=== PATIENT | male | born 1960 | race American Indian/Alaskan Native ===

== ENCOUNTER 2018-01-08 17:45 | Emergency (ER) | payer SELFPAY ==
--- NOTE | 2018-01-08 18:24 | Emergency Department Report ---
HPI - General Chief Complaint: Abdominal Pain Time Seen by Provider: 01/08/18 18:13 - HPI HPI: Room 2 The patient is a 57-year-old male presenting with a chief complaint of left flank pain. The patient states this morning he had the sudden onset of pain in the left flank and it has been constant. Patient denies nausea/vomiting or shortness of breath. Location: [See above] Duration: Constant since this morning Quality: Pain Severity: Moderate Modifying factors: [see above] Context: [see above] Mode of transportation: [not driving] ED Past Medical Hx - Past Medical History Previous Medical History?: Yes - Surgical History Past Surgical History?: No - Family History Family history: no significant - Social History Smoking Status: Current Every Day Smoker (1/1.5 packs per day) Substance Use Type: None (denies illicit drug use), Alcohol (two 24oz beers daily) - Medications Home Medications: Home Medications Medication Instructions Recorded Confirmed Last Taken Type Ibuprofen [Motrin 800 MG tab] 800 mg PO Q8HR PRN #20 tablet 01/08/18 Unknown Rx traMADol [Ultram] 50 mg PO Q6HR PRN #10 tablet 01/08/18 Unknown Rx ED Review of Systems ROS: Stated complaint: FLANK/BACK PAIN Other details as noted in HPI Respiratory: denies: shortness of breath Gastrointestinal: abdominal pain. denies: nausea, vomiting Musculoskeletal: back pain Physical Exam - Physical Exam Vital Signs: Vital Signs 01/08/18 17:55 Pulse Rate 75 Respiratory 17 Rate Blood Pressure 143/80 O2 Sat by Pulse 97 Oximetry Physical Exam: GENERAL: The patient is well-developed well-nourished pleasant thin male sitting on stretcher not appear to be in acute distress. Odor of alcohol on breath HEENT: Normocephalic. Atraumatic. Extraocular motions are intact. Patient has moist mucous membranes. NECK: Supple. Trachea midline CHEST/LUNGS: Clear to auscultation. There is no respiratory distress noted. HEART/CARDIOVASCULAR: Regular. There is no tachycardia. There is no gallop rub or murmur. ABDOMEN: Abdomen is soft, with discomfort to palpation in the right upper quadrant, right lower quadrant and left lower quadrant. There is no rebound or guarding. Patient has normal bowel sounds. There is no abdominal distention. SKIN: There is no rash. There is no edema. There is no diaphoresis. NEURO: The patient is awake, alert, and oriented. The patient is cooperative. The patient has normal speech MUSCULOSKELETAL: There is some left CVA tenderness. There is no evidence of acute injury. ED Course Vital Signs 01/08/18 17:55 Pulse Rate 75 Respiratory 17 Rate Blood Pressure 143/80 O2 Sat by Pulse 97 Oximetry - Reevaluation(s) Reevaluation #1: 01/09/18 00:03 Patient resting comfortably. Patient informed that he will be discharged to family or when his alcohol level has decreased to <0.08 ED Medical Decision Making - Lab Data Result diagrams: 01/08/18 18:19 01/08/18 18:19 Laboratory Tests 01/08/18 01/08/18 01/08/18 18:19 18:19 18:19 WBC 4.2 L RBC 3.81 Hgb 12.5 Hct 38.1 MCV 100 H MCH 33 H MCHC 33 RDW 14.0 Plt Count 249 Lymph % (Auto) 44.4 H [place] % (Auto) 7.4 H Eos % (Auto) 8.5 H Baso % (Auto) 2.6 H Lymph # 1.9 [place] # 0.3 Eos # 0.4 Baso # 0.1 Seg Neutrophils % 37.1 L Seg Neutrophils # 1.6 L Sodium Potassium Chloride Carbon Dioxide Anion Gap BUN Creatinine Estimated GFR BUN/Creatinine Ratio Glucose Calcium Total Bilirubin AST ALT Alkaline Phosphatase Total Protein Albumin Albumin/Globulin Ratio Amylase 32 Lipase 41 Urine Color Urine Turbidity Urine pH Ur Specific [place] Urine Protein Urine Glucose (UA) Urine Ketones Urine Blood Urine Nitrite Urine Bilirubin Urine Urobilinogen Ur Leukocyte Esterase Urine WBC (Auto) Urine RBC (Auto) Urine Mucus Plasma/Serum Alcohol 0.30 H 01/08/18 01/08/18 18:19 20:34 WBC RBC Hgb Hct MCV MCH MCHC RDW Plt Count Lymph % (Auto) [place] % (Auto) Eos % (Auto) Baso % (Auto) Lymph # [place] # Eos # Baso # Seg Neutrophils % Seg Neutrophils # Sodium 141 Potassium 4.4 Chloride 102.4 Carbon Dioxide 24 Anion Gap 19 BUN 14 Creatinine 0.6 L Estimated GFR > 60 BUN/Creatinine Ratio 23 Glucose 82 Calcium 8.7 Total Bilirubin 0.30 AST 25 ALT 10 Alkaline Phosphatase 72 Total Protein 7.1 Albumin 4.4 Albumin/Globulin Ratio 1.6 Amylase Lipase Urine Color Yellow Urine Turbidity Clear Urine pH 5.0 Ur Specific [place] 1.017 Urine Protein <15 mg/dl Urine Glucose (UA) Neg Urine Ketones Neg Urine Blood Neg Urine Nitrite Neg Urine Bilirubin Neg Urine Urobilinogen < 2.0 Ur Leukocyte Esterase Neg Urine WBC (Auto) < 1.0 Urine RBC (Auto) 1.0 Urine Mucus Few Plasma/Serum Alcohol - Radiology Data Radiology results: report reviewed (CT chest, CT abdomen and pelvis), image reviewed (CT chest, CT abdomen and pelvis) [address] [address] Cat Scan Report Signed Patient: TABBY MONTENEGRO MR#: [id number] : 1960 Acct:[id number] Age/Sex: 57 / M ADM Date: 01/08/18 Loc: ED Attending Dr: Ordering Physician: HELENE CATES MD Date of Service: 01/08/18 Procedure(s): CT angio chest Accession Number(s): [id number] cc: HELENE CATES MD FINAL REPORT PROCEDURE: CT ANGIO CHEST TECHNIQUE: Computerized tomographic angiography of the chest was performed during the IV injection of iodinated nonionic contrast including image processing. The image data was postprocessed using 2-dimensional multiplanar reformatted (MPR) and 3-dimensional (MIP and/or volume rendered) techniques. HISTORY: Sudden onset left-sided pain. COMPARISON: No prior studies are available for comparison. FINDINGS: Pulmonary outflow tract, right and left main pulmonary arteries and their proximal branches: Clear, no filling defects seen to suggest pulmonary embolus. Pericardium: No evidence of pericardial effusion. Thoracic aorta: Atherosclerotic changes visualized, evidence of aneurysmal dilatation or dissection. Coronary arteries: Are partially calcified indicating atherosclerotic disease. Mediastinum and hilar regions: Nonspecific subcentimeter lymph nodes are visualized. No pathologically enlarged lymph nodes or masses are identified. Lung [place]: Clear Upper abdomen: Mild to moderate diffuse emphysematous changes are present. No infiltrates or masses are identified. Linear band of atelectasis visualize left lower lobe. Other: None IMPRESSION: Emphysematous changes are visualized. No acute abnormalities are seen. No evidence of pulmonary embolus or aortic aneurysm. Atherosclerotic changes are seen in the coronary arteries. Transcribed By: DFN Dictated By: STACAI HERNANDEZ MD Electronically Authenticated By: STACIA HERNANDEZ MD Signed Date/Time: 01/08/182151 DD/ 51 TD/TT: 01/08/182151 [facility] [address] [place] [address] Cat Scan Report Signed Patient: TABBY MONTENEGRO MR#: [id number] : 1960 Acct:[id number] Age/Sex: 57 / M ADM Date: 01/08/18 Loc: ED Attending Dr: Ordering Physician: HELENE CATES MD Date of Service: 01/08/18 Procedure(s): CT abdomen pelvis w con Accession Number(s): [id number] cc: HELENE CATES MD FINAL REPORT PROCEDURE: CT ABDOMEN PELVIS W CON TECHNIQUE: Computerized axial tomography of the abdomen and pelvis was performed after the IV injection of iodinated nonionic contrast. HISTORY: left flank pain, diffuse abdominal pain COMPARISON: No prior studies are available for comparison. FINDINGS: Lower Lung [place]: Thin linear band of atelectasis appears to be present in the left lower lobe. Lung bases otherwise are unremarkable. Upper Abdomen: The liver, the gallbladder, the adrenal glands, the pancreas and spleen are unremarkable. Kidneys, Ureters and Urinary bladder: Small focal area of cortical thinning visualized upper 3rd left kidney posteriorly consistent with a small parenchymal scar. The kidneys otherwise are unremarkable.. No renal calculi are seen. There are no renal masses visualized. No hydronephrosis. The ureters and urinary bladder are also unremarkable. Retroperitoneum: Atherosclerotic changes are seen in the abdominal aorta and iliac artery. No aneurysm is visualized. Nonspecific subcentimeter lymph nodes are seen in the retroperitoneum. No pathologically enlarged lymph nodes are identified. Bowel: Mild diverticulosis seen left side of the colon. No evidence of diverticulitis. No evidence of bowel obstruction or ascites. There is no free intraperitoneal gas. Normal-appearing appendix is seen in the right lower quadrant. Reproductive organs: There is nonspecific prostate enlargement. Other: No acute bony abnormalities are seen. IMPRESSION: Small parenchymal scar visualize left kidney as described. No hydronephrosis renal mass or calculi are seen. Mild colonic diverticulosis left side of the colon without evidence of diverticulitis. There is nonspecific diffuse prostate enlargement. Transcribed By: DFAnna Marie Dictated By: STACIA HERNANDEZ MD Electronically Authenticated By: STACIA HERNANDEZ MD Signed Date/Time: 01/08/182343 DD/ 43 TD/TT: 01/08/182343 - Differential Diagnosis renal colic, aortic dissection, PE, UTI, polynephritis, pneumothorax Critical care attestation.: If time is entered above; I have spent that time in minutes in the direct care of this critically ill patient, excluding procedure time. ED Disposition Clinical Impression: Acute left flank pain, Alcohol intoxication Disposition: TO HOME OR SELFCARE Is pt being admited?: No Does the pt Need Aspirin: No Condition: Stable Instructions: Abuse of Alcohol (ED), At-Risk Alcohol Use (ED), Flank Pain (ED) Additional Instructions: Return to the emergency department immediately should you develop worsening symptoms, fever, inability to tolerate food or liquid or any other concerns. Prescriptions: Ibuprofen [Motrin 800 MG tab] 800 mg PO Q8HR PRN #20 tablet PRN Reason: Pain traMADol [Ultram] 50 mg PO Q6HR PRN #10 tablet PRN Reason: Pain Referrals: JACOOB MIMS MD [Primary Care Provider] - 3-5 Days Time of Disposition: 00:01 (d/c to family or when ETOH <0.08)
[2018-01-08 18:32] LABS: Basophils # (Auto) 0.1 K/mm3 (0.0-0.1); Basophils % (Auto) 2.6 % (0.0-1.8); Eosinophils # (Auto) 0.4 K/mm3 (0.0-0.4); Eosinophils % (Auto) 8.5 % (0.0-4.3); Hematocrit 38.1 % (35.5-45.6); Hemoglobin 12.5 gm/dl (11.8-15.2); Lymphocytes # (Auto) 1.9 K/mm3 (1.2-5.4); Lymphocytes % (Auto) 44.4 % (13.4-35.0); Mean Corpuscular HGB Conc 33 % (32-34); Mean Corpuscular Hemoglobin 33 pg (28-32); Mean Corpuscular Volume 100 fl (84-94); Monocytes # (Auto) 0.3 K/mm3 (0.0-0.8); Monocytes % (Auto) 7.4 % (0.0-7.3); Platelet Count 249 K/mm3 (140-440); Red Blood Count 3.81 M/mm3 (3.65-5.03)
[2018-01-08 18:54] LABS: Lipase 41 units/L (13-60)
[2018-01-08 18:56] LABS: Alanine Aminotransferase 10 units/L (7-56); Albumin 4.4 g/dL (3.9-5); BUN/Creatinine Ratio 23; Blood Urea Nitrogen 14 mg/dL (9-20); Calcium 8.7 mg/dL (8.4-10.2); Hemolysis Index 5
[2018-01-08] MEDS ORDERED: VITAMIN B-1 100 MG, FOLVITE 1 MG, INFUVITE 10 ML, MAGNESIUM SULFATE 2 GM in NACL 0.9% 1... IV ONE (20:25)
[2018-01-08 20:49] LABS: Bilirubin,Urine NEG (Negative); Blood,Urine NEG (Negative); Color,Urine Yellow (Yellow); Mucus,Urine FEW /HPF; Protein,Urine <15 mg/dL mg/dL (Negative); Urobilinogen,Urine < 2.0 mg/dL (<2.0); WBC,Urine < 1.0 /HPF (0.0-6.0)
--- NOTE | 2018-01-08 21:58 | Cat Scan Report ---
FINAL REPORT PROCEDURE: CT ANGIO CHEST TECHNIQUE: Computerized tomographic angiography of the chest was performed during the IV injection of iodinated nonionic contrast including image processing. The image data was postprocessed using 2-dimensional multiplanar reformatted (MPR) and 3-dimensional (MIP and/or volume rendered) techniques. HISTORY: Sudden onset left-sided pain. COMPARISON: No prior studies are available for comparison. FINDINGS: Pulmonary outflow tract, right and left main pulmonary arteries and their proximal branches: Clear, no filling defects seen to suggest pulmonary embolus. Pericardium: No evidence of pericardial effusion. Thoracic aorta: Atherosclerotic changes visualized, evidence of aneurysmal dilatation or dissection. Coronary arteries: Are partially calcified indicating atherosclerotic disease. Mediastinum and hilar regions: Nonspecific subcentimeter lymph nodes are visualized. No pathologically enlarged lymph nodes or masses are identified. Lung [place]: Clear Upper abdomen: Mild to moderate diffuse emphysematous changes are present. No infiltrates or masses are identified. Linear band of atelectasis visualize left lower lobe. Other: None IMPRESSION: Emphysematous changes are visualized. No acute abnormalities are seen. No evidence of pulmonary embolus or aortic aneurysm. Atherosclerotic changes are seen in the coronary arteries.
--- NOTE | 2018-01-08 23:49 | Cat Scan Report ---
FINAL REPORT PROCEDURE: CT ABDOMEN PELVIS W CON TECHNIQUE: Computerized axial tomography of the abdomen and pelvis was performed after the IV injection of iodinated nonionic contrast. HISTORY: left flank pain, diffuse abdominal pain COMPARISON: No prior studies are available for comparison. FINDINGS: Lower Lung [place]: Thin linear band of atelectasis appears to be present in the left lower lobe. Lung bases otherwise are unremarkable. Upper Abdomen: The liver, the gallbladder, the adrenal glands, the pancreas and spleen are unremarkable. Kidneys, Ureters and Urinary bladder: Small focal area of cortical thinning visualized upper 3rd left kidney posteriorly consistent with a small parenchymal scar. The kidneys otherwise are unremarkable.. No renal calculi are seen. There are no renal masses visualized. No hydronephrosis. The ureters and urinary bladder are also unremarkable. Retroperitoneum: Atherosclerotic changes are seen in the abdominal aorta and iliac artery. No aneurysm is visualized. Nonspecific subcentimeter lymph nodes are seen in the retroperitoneum. No pathologically enlarged lymph nodes are identified. Bowel: Mild diverticulosis seen left side of the colon. No evidence of diverticulitis. No evidence of bowel obstruction or ascites. There is no free intraperitoneal gas. Normal-appearing appendix is seen in the right lower quadrant. Reproductive organs: There is nonspecific prostate enlargement. Other: No acute bony abnormalities are seen. IMPRESSION: Small parenchymal scar visualize left kidney as described. No hydronephrosis renal mass or calculi are seen. Mild colonic diverticulosis left side of the colon without evidence of diverticulitis. There is nonspecific diffuse prostate enlargement.
[2018-01-09 10:23] VITALS: BP 135/74
== END 2018-01-09 10:23 | disposition home or self-care (01) ==
LOC: ED 17:45
DX: R10.9 Unspecified abdominal pain (principal); F10.120 Alcohol abuse with intoxication, uncomplicated; F17.200 Nicotine dependence, unspecified, uncomplicated
CPT/HCPCS: 36415; 71275; 74177; 80053; 81001; 82150; 83690; 85025; 96365; 96366; 99285; G0480; J3411; J3475; J7030; Q9967; 80320

== ENCOUNTER 2019-01-09 15:34 | Emergency (ER) | payer OTHER ==
--- NOTE | 2019-01-09 16:05 | Emergency Department Report ---
Blank Doc - Documentation Documentation: This is a 58-year-old male that presents with chest pain and SOB. This initial assessment/diagnostic orders/clinical plan/treatment(s) is/are subject to change based on patient's health status, clinical progression and re- assessment by fellow clinical providers in the ED. Further treatment and workup at subsequent clinical providers discretion. Patient/guardians urged not to elope from the ED as their condition may be serious if not clinically assessed and managed. Initial orders include: 1- Patient sent to MAIN ED for further evaluation and treatment 2- labs 3- EKG 4- CXR
--- NOTE | 2019-01-09 16:54 | XRay Report ---
PROCEDURE: XR CHEST ROUTINE 2V TECHNIQUE: 2 view chest HISTORY: Chest Pain COMPARISONS: None FINDINGS: Heart size normal. Trachea midline. Mediastinal contour unremarkable. No pneumothorax. No sizable effusion. No acute airspace disease. No acute bony abnormality. IMPRESSION: No active pulmonary disease.. This document is electronically signed by Jose Travis MD., Jan 09 2019 04:52:30 PM ET
[2019-01-09 18:01] LABS: Basophils # (Auto) 0.1 K/mm3 (0.0-0.1); Basophils % (Auto) 1.1 % (0.0-1.8); Eosinophils # (Auto) 0.4 K/mm3 (0.0-0.4); Eosinophils % (Auto) 7.4 % (0.0-4.3); Hematocrit 41.2 % (35.5-45.6); Hemoglobin 13.9 gm/dl (11.8-15.2); Lymphocytes # (Auto) 2.1 K/mm3 (1.2-5.4); Lymphocytes % (Auto) 42.5 % (13.4-35.0); Mean Corpuscular HGB Conc 34 % (32-34); Mean Corpuscular Volume 99 fl (84-94); Monocytes # (Auto) 0.4 K/mm3 (0.0-0.8); Monocytes % (Auto) 8.1 % (0.0-7.3); Platelet Count 424 K/mm3 (140-440); Red Blood Count 4.17 M/mm3 (3.65-5.03); Red Cell Distribution Width 13.6 % (13.2-15.2)
[2019-01-09 18:12] LABS: INR 0.88 (0.87-1.13)
[2019-01-09 18:13] LABS: Partial Thromboplastin Time 26.9 Sec. (24.2-36.6)
[2019-01-09 18:24] LABS: BUN/Creatinine Ratio 18; Blood Urea Nitrogen 16 mg/dL (9-20); Calcium 9.7 mg/dL (8.4-10.2); Hemolysis Index 0
--- NOTE | 2019-01-09 23:52 | Emergency Department Report ---
ED Chest Pain HPI - General Chief Complaint: Chest Pain Stated Complaint: ACID REFLUX Time Seen by Provider: 01/09/19 15:55 Source: patient Mode of arrival: Ambulatory Limitations: No Limitations - History of Present Illness Initial Comments: Patient is 58 years old male with no significant past medical history. Patient presented to the ER complaining of substernal chest pain for the last 3 days. Patient describes his pain as tightness, comes and goes with no radiation. Patient stated that pain associated with shortness of breath. Patient denied any cough, fever or chills. MD Complaint: chest pain Severity scale (0 -10): 0 - Related Data Previous Rx's Medication Instructions Recorded Last Taken Type Ibuprofen [Motrin 800 MG tab] 800 mg PO Q8HR PRN #20 tablet 01/08/18 Unknown Rx traMADol [Ultram] 50 mg PO Q6HR PRN #10 tablet 01/08/18 Unknown Rx Allergies Allergy/AdvReac Type Severity Reaction Status Date / Time No Known Allergies Allergy Verified 01/09/19 15:49 Heart Score - HEART Score History: Slightly suspicious EKG: Normal Age: 45-65 Risk factors: No known risk factors Troponin: < normal limit HEART Score: 1 - Critical Actions Critical Actions: 0-3 pts:0.9-1.7%risk of adverse cardiac event.Candidate for discharge ED Review of Systems ROS: Stated complaint: ACID REFLUX Other details as noted in HPI Comment: All other systems reviewed and negative Constitutional: denies: chills, fever Respiratory: shortness of breath. denies: cough, orthopnea, SOB with exertion, SOB at rest, wheezing Cardiovascular: chest pain. denies: palpitations, dyspnea on exertion Gastrointestinal: denies: abdominal pain, nausea, vomiting, diarrhea, constipation, hematemesis Musculoskeletal: denies: back pain Neurological: denies: headache, weakness, numbness, paresthesias, confusion, abnormal gait ED Past Medical Hx - Past Medical History Hx Hypertension: Yes Additional medical history: pneu - Surgical History Past Surgical History?: No - Social History Smoking Status: Current Every Day Smoker Substance Use Type: None - Medications Home Medications: Home Medications Medication Instructions Recorded Confirmed Last Taken Type Ibuprofen [Motrin 800 MG tab] 800 mg PO Q8HR PRN #20 tablet 01/08/18 Unknown Rx traMADol [Ultram] 50 mg PO Q6HR PRN #10 tablet 01/08/18 Unknown Rx ED Physical Exam - General Limitations: No Limitations General appearance: alert, in no apparent distress - Head Head exam: Present: atraumatic, normocephalic, normal inspection - Eye Eye exam: Present: normal appearance - ENT ENT exam: Present: normal exam, normal orophraynx, mucous membranes moist - Neck Neck exam: Present: normal inspection, full ROM. Absent: tenderness, men ingismus, lymphadenopathy, thyromegaly - Respiratory Respiratory exam: Present: normal lung sounds bilaterally - Cardiovascular Cardiovascular Exam: Present: regular rate, normal rhythm, normal heart sounds - GI/Abdominal GI/Abdominal exam: Present: soft, normal bowel sounds. Absent: distended, tenderness, guarding, rebound, rigid, organomegaly, mass, bruit, pulsatile mass - Extremities Exam Extremities exam: Present: normal inspection, full ROM, normal capillary refill - Back Exam Back exam: Present: normal inspection, full ROM. Absent: tenderness, CVA tenderness (R), CVA tenderness (L), muscle spasm, paraspinal tenderness, vertebral tenderness - Neurological Exam Neurological exam: Present: alert, oriented X3, CN II-XII intact, normal gait, reflexes normal - Skin Skin exam: Present: warm, intact, normal color ED Course Vital Signs 01/09/19 01/09/19 01/09/19 15:52 23:30 23:37 Temperature 98.1 F Pulse Rate 90 Respiratory 20 Rate Blood Pressure 147/69 147/69 Blood Pressure 169/83 [Left] O2 Sat by Pulse 98 98 97 Oximetry 01/09/19 01/10/19 01/10/19 23:45 00:00 00:15 Temperature Pulse Rate 56 L 69 57 L Respiratory 17 21 16 Rate Blood Pressure 142/70 153/83 132/63 Blood Pressure [Left] O2 Sat by Pulse 98 98 98 Oximetry 01/10/19 01/10/19 01/10/19 00:30 00:45 01:00 Temperature Pulse Rate 57 L 55 L 53 L Respiratory 15 15 16 Rate Blood Pressure 154/79 138/65 133/66 Blood Pressure [Left] O2 Sat by Pulse 98 98 97 Oximetry 01/10/19 01/10/19 01/10/19 01:15 01:30 01:45 Temperature Pulse Rate 69 54 L 54 L Respiratory 15 16 17 Rate Blood Pressure 153/69 128/68 130/65 Blood Pressure [Left] O2 Sat by Pulse 99 97 98 Oximetry 01/10/19 01/10/19 01/10/19 02:00 02:15 02:30 Temperature Pulse Rate 53 L 55 L 57 L Respiratory 17 18 20 Rate Blood Pressure 137/70 126/62 133/71 Blood Pressure [Left] O2 Sat by Pulse 97 97 97 Oximetry 01/10/19 01/10/19 01/10/19 03:00 04:01 05:01 Temperature Pulse Rate 64 66 58 L Respiratory 18 12 17 Rate Blood Pressure 114/64 114/64 114/64 Blood Pressure [Left] O2 Sat by Pulse 97 97 98 Oximetry 01/10/19 05:35 Temperature Pulse Rate Respiratory Rate Blood Pressure Blood Pressure 160/78 [Left] O2 Sat by Pulse Oximetry ED Medical Decision Making - Lab Data Result diagrams: 01/09/19 17:16 01/09/19 17:16 - EKG Data -: EKG Interpreted by Pr EKG shows normal: sinus rhythm Rate: normal - EKG Data Interpretation: no acute changes - Radiology Data Radiology results: report reviewed Referring Physician: FE STAYC Patient Name: TABBY MONTENEGRO Date of : 1960 Sex: Male Report Date: 2019-01-10 Report Status: Final[place] [address] Cat Scan Report Signed Patient: TABBY MONTENEGRO MR#: [id number] : 1960 Acct:[id number] Age/Sex: 58 / M ADM Date: 01/09/19 Loc: ED Attending Dr: Ordering Physician: FE STACY Date of Service: 01/10/19 Procedure(s): CT angio chest Accession Number(s): [id number] cc: FE STACY PROCEDURE: CT ANGIOGRAM OF THE CHEST FOR PULMONARY EMBOLISM TECHNIQUE: Computerized axial tomographic angiography of the chest and pulmonary arteries was performed after the IV injection of iodinated nonionic contrast. The image data was postprocessed using maximum intensity projection (MIP) and 2-dimensional multiplanar reformatted (MPR) techniques. The examination is specifically tailored to the evaluation of the pulmonary arteries per clinical request. Automated exposure control, adjustment of mA and/or kV according to patient size, or iterative reconstruction dose optimization techniques were utilized. CPT G9637, 61535 HISTORY: Shortness of breath R06.02, chest pain unspecified R07.9 , COMPARISONS: None . FINDINGS: Heart and pericardium: Normal. Thoracic aorta: Normal. Pulmonary vasculature: Normal. No pulmonary emboli. Lymph nodes: No enlarged thoracic lymph nodes. Lungs: Lungs are expanded. There is mild COPD. There are no infiltrates.. Pleural space: No effusion, thickening, or pneumothorax. Musculoskeletal structures: No significant abnormality. Upper abdominal structures: No significant abnormality. IMPRESSION: There is no pulmonary embolism.. This document is electronically signed by Ever Burr MD., Jan 10 2019 04:19:51 AM ET Transcribed By: CO Dictated By: EVER BURR MD Electronically Authenticated By: EVER BURR MD Signed Date/Time: 01/10/19421 DD/ 8 TD/TT: 01/10/19348 - Medical Decision Making Patient is 58 years old male with no significant past medical history. Patient presented to the ER complaining of substernal chest pain for the last 3 days. Patient describes his pain as tightness, comes and goes with no radiation. Patient stated that pain associated with shortness of breath. Patient denied any cough, fever or chills. Patient EKG is showing an ST elevation. Troponin is negative. D-dimer slightly elevated patient had a CTA chest is negative for PE. I advised the patient to follow up with his primary care physician for further workup and to return to the ER if symptoms are not improved. Critical care attestation.: If time is entered above; I have spent that time in minutes in the direct care of this critically ill patient, excluding procedure time. ED Disposition Clinical Impression: Chest pain Disposition: DC-01 TO HOME OR SELFCARE Is pt being admited?: No Condition: Stable Instructions: Chest Pain (ED) Referrals: MULU PFEIFFER MD [Primary Care Provider] - 3-5 Days
--- NOTE | 2019-01-10 04:22 | Cat Scan Report ---
PROCEDURE: CT ANGIOGRAM OF THE CHEST FOR PULMONARY EMBOLISM TECHNIQUE: Computerized axial tomographic angiography of the chest and pulmonary arteries was perfor med after the IV injection of iodinated nonionic contrast. The image data was postprocessed using max imum intensity projection (MIP) and 2-dimensional multiplanar reformatted (MPR) techniques. The exami nation is specifically tailored to the evaluation of the pulmonary arteries per clinical request. Au tomated exposure control, adjustment of mA and/or kV according to patient size, or iterative reconstr uction dose optimization techniques were utilized. CPT G9637, 45472 HISTORY: Shortness of breath R06.02, chest pain unspecified R07.9 , COMPARISONS: None . FINDINGS: Heart and pericardium: Normal. Thoracic aorta: Normal. Pulmonary vasculature: Normal. No pulmonary emboli. Lymph nodes: No enlarged thoracic lymph nodes. Lungs: Lungs are expanded. There is mild COPD. There are no infiltrates.. Pleural space: No effusion, thickening, or pneumothorax. Musculoskeletal structures: No significant abnormality. Upper abdominal structures: No significant abnormality. IMPRESSION: There is no pulmonary embolism.. This document is electronically signed by Ever Church MD., Jan 10 2019 04:19:51 AM ET
[2019-01-10 06:43] VITALS: BP 133/60
== END 2019-01-10 06:43 | disposition home or self-care (01) ==
LOC: ED 15:34
DX: R07.89 Other chest pain (principal); I10 Essential (primary) hypertension; F17.200 Nicotine dependence, unspecified, uncomplicated
CPT/HCPCS: 36415; 71046; 71275; 80048; 83690; 84484; 85025; 85379; 85610; 85730; 93005; 93010; 99285; Q9967